=== PATIENT | male | born 1985 | race Caucasian/White ===

== ENCOUNTER 2021-10-22 09:55 | Emergency (ER) | payer OTHER ==
[~2021-10-22] VITALS: Ht 193 cm; Wt 115.7 kg
[2021-10-22 11:53] LABS: HEMATOCRIT 42.4 % (36.7-47.1); MEAN CORPUSCULAR HEMOGLOBIN 31.1 uug (23.8-33.4); MEAN CORPUSCULAR VOLUME 91.6 fL (73.0-96.2); PLATELET COUNT (AUTO) 186 K/uL (152-348)
[2021-10-22 12:16] LABS: ALANINE AMINOTRANSFERASE 47 U/L (16-63); ALKALINE PHOSPHATASE 75 U/L (50-136); ASPARTATE AMINOTRANSFERASE 31 U/L (15-37); BILIRUBIN,DIRECT 0.1 mg/dL (0.0-0.2); BILIRUBIN,TOTAL 0.6 mg/dL (0.2-1.0); TOTAL PROTEIN, SERUM 7.5 g/dL (6.4-8.2)
[2021-10-22 12:29] LABS: CARBON DIOXIDE 28 mmol/L (21-32); CHLORIDE 105 mmol/L (98-107); CREATININE 1.3 mg/dL (0.6-1.3); GLUCOSE 103 mg/dL (74-106); POTASSIUM 4.8 mmol/L (3.5-5.1); UREA NITROGEN, BLOOD 18 mg/dL (7-18)
[2021-10-22] MEDS ORDERED: ASPIRIN 81 MG TAB.CHEW PO ONE (13:00)
[2021-10-22] MEDS ORDERED: ASPIRIN 81 MG TAB.CHEW ONE (13:24)
[2021-10-22] MEDS ORDERED: APIX2.5T PO (13:58)
[2021-10-22] MEDS ORDERED: OMEP20TA5 PO (14:08)
[2021-10-22] MEDS ORDERED: EMPA25TA PO (14:08)
[2021-10-22] MEDS ORDERED: CARV3.122 PO (14:08)
[2021-10-22] MEDS ORDERED: SACUBITRIL PO (14:08)
[2021-10-22] MEDS ORDERED: ATOR10TA PO (14:08)
[2021-10-22] MEDS ORDERED: SPIR25TA6 PO (14:08)
[2021-10-22] MEDS ORDERED: MORPHINE SULFATE 2 MG/1 ML DISP.SYRIN IV PRN (15:30)
[2021-10-22] MEDS ORDERED: ACETAMINOPHEN 325 MG TABLET PO PRN (15:30)
[2021-10-22] MEDS ORDERED: Medication Not On Formulary EA (Omeprazole 1 TAB) PO SCH (15:30)
[2021-10-22] MEDS ORDERED: hydrALAZINE HCL 20 MG/1 ML VIAL IV PRN (15:30)
[2021-10-22] MEDS ORDERED: ONDANSETRON 4 MG/2 ML VIAL IV PRN (15:30)
[2021-10-22] MEDS ORDERED: SACUBITRIL PO SCH (17:00)
--- NOTE | 2021-10-22 17:27 | NUR ---
Patient didnt wanna be admitted. Informed Dr. Jeff. Explained risks and benefits of hospitalization. Patient and MD both signed the AMA.
[2021-10-22] MEDS: CARVEDILOL 3.125 MG TABLET PO SCH ×2 (17:44→17:48)
[2021-10-22] MEDS ORDERED: CARVEDILOL 3.125 MG TABLET ONE (17:59)
[2021-10-22 18:15] VITALS: BP 134/97
[2021-10-22] MEDS ORDERED: APIXABAN 2.5 MG TABLET PO SCH (18:30)
[2021-10-23] MEDS ORDERED: ATORVASTATIN 10 MG TABLET PO SCH (09:00)
[2021-10-23] MEDS ORDERED: SPIRONOLACTONE 25 MG TABLET PO SCH (09:00)
== END 2021-10-22 18:16 | disposition left against medical advice (07) ==
LOC: ER 09:55
DX: I24.9 Acute ischemic heart disease, unspecified (principal); Z20.822 Contact with and (suspected) exposure to COVID-19; Z53.29 Procedure and treatment not carried out because of patient's decision for other reasons; Z86.718 Personal history of other venous thrombosis and embolism; Z79.01 Long term (current) use of anticoagulants; R77.8 Other specified abnormalities of plasma proteins; I25.2 Old myocardial infarction
CPT/HCPCS: 36415; 71045; 84484; 85025; 93005; 93307; A4663

== ENCOUNTER 2021-10-22 19:13 | Emergency (ER) | payer SELFPAY ==
[~2021-10-22 19:13] MED LIST: APIX2.5T PO; ATOR10TA PO; CARV3.122 PO; EMPA25TA PO; OMEP20TA5 PO; SACUBITRIL PO; SPIR25TA6 PO
--- NOTE | 2021-10-22 21:00 | NUR ---
Patient was called to be triaged but was not present in the waiting room or outside of ER.
--- NOTE | 2021-10-22 21:30 | NUR ---
Patient was called to be triaged but was not present in the waiting room or outside of ER.
--- NOTE | 2021-10-22 22:00 | NUR ---
Patient was called to be triaged but was not present in the waiting room or outside of ER. PATIENT WAS NOT TRIAGED OR SEEN BY ERMD.
== END 2021-10-22 22:00 | disposition left against medical advice (07) ==
LOC: ER 19:18
DX: Z53.21 Procedure and treatment not carried out due to patient leaving prior to being seen by health care provider (principal)